=== PATIENT | female | born 1975 | race Caucasian/White ===

== ENCOUNTER 2019-01-29 23:08 | Observation (INO) | payer OTHER ==
[~2019-01-29] VITALS: Ht 162.6 cm; Wt 92.1 kg
[2019-01-29] MEDS ORDERED: SODIUM CHLORIDE 0.9% 1000ML 1,000 ML IV STA (23:28)
[2019-01-29] MEDS ORDERED: PANTOPRAZOLE 40 MG 10ML VIAL IV STA (23:28)
[2019-01-29] MEDS ORDERED: ASPIRIN 81 MG CHEW TAB PO ONE (23:30)
[2019-01-30 00:07] LABS: BASOPHILS # (AUTO) 0.1 (0.0-0.1); BASOPHILS % 0.5 % (0.0-1.0); EOSINOPHILS # (AUTO) 0.1 (0.0-0.4); EOSINOPHILS % 0.6 % (0.0-6.0); HEMATOCRIT 43.2 % (34.2-44.1); HEMOGLOBIN 14.3 g/dL (12.0-16.0); LYMPHOCYTES # (AUTO) 4.3 (1.0-3.2); LYMPHOCYTES % 26.6 % (18.0-39.1); MEAN CORPUSCULAR HEMOGLOBIN 29.3 pg (28-32); MEAN CORPUSCULAR HGB CONC 33.1 g/dL (31-35); MEAN CORPUSCULAR VOLUME 88.5 fL (81-99); MONOCYTES # (AUTO) 0.7 (0.2-0.8); MONOCYTES % 4.4 % (4.4-11.3); NEUTROPHILS # (AUTO) 10.8 (2.1-6.9); NEUTROPHILS % 67.5 % (38.7-80.0); PLATELET COUNT 312 x10e3/uL (140-360); RED BLOOD COUNT 4.88 x10e6/uL (3.6-5.1); RED CELL DISTRIBUTION WIDTH 12.9 % (11.7-14.4)
[2019-01-30 00:14] LABS: INR 0.92; PROTHROMBIN TIME 12.8 seconds (11.9-14.5)
--- NOTE | 2019-01-30 00:19 | Diagnostic Imaging Report ---
EXAMINATION: CHEST SINGLE (PORTABLE) INDICATION: Chest pain. COMPARISON: None FINDINGS: TUBES and LINES: None. LUNGS: Lungs are not well inflated. There is no evidence of pneumonia or pulmonary edema. PLEURA: No pleural effusion or pneumothorax. HEART AND MEDIASTINUM: The cardiomediastinal silhouette is unremarkable. BONES AND SOFT TISSUES: No acute osseous abnormality. UPPER ABDOMEN: No free air under the diaphragm. IMPRESSION: No acute radiographic abnormality. Signed by: Dr. Randy Méndez MD on 01/30/2019 12:15 AM
[2019-01-30 00:33] LABS: ALANINE AMINOTRANSFERASE 39 IU/L (0-55); ALBUMIN 3.9 g/dL (3.5-5.0); ALBUMIN/GLOBULIN RATIO 0.9 (0.8-2.0); ALKALINE PHOSPHATASE 94 IU/L (40-150); ANION GAP 14.9 mmol/L (8-16); BLOOD UREA NITROGEN 14 mg/dL (7-26); BUN/CREATININE RATIO 18 (6-25); CALCIUM 9.6 mg/dL (8.4-10.2); CARBON DIOXIDE 28 mmol/L (22-29); CHLORIDE 98 mmol/L (98-107); CREATINE KINASE 42 IU/L (29-168); EST GLOMERULAR FILTRATION RATE > 60 ML/MIN (60-); GLUCOSE 149 mg/dL (74-118); MAGNESIUM 1.9 MG/DL (1.3-2.1); SODIUM 138 mmol/L (136-145)
[2019-01-30 00:51] LABS: POTASSIUM 2.9 mmol/L (3.5-5.1)
[2019-01-30] MEDS ORDERED: POTASSIUM CHLORIDE 20 MEQ TAB CR PO STA (00:58)
[2019-01-30] MEDS ORDERED: MORPHINE SULFATE 2 MG/ML SYR 1ML IV PRN (01:15)
[2019-01-30] MEDS ORDERED: ONDANSETRON HCL INJ 2MG/ML 2ML 2 MG/ML VIAL IV PRN (01:15)
[2019-01-30] MEDS ORDERED: NITROGLYCERIN 0.4 MG SUBL SL PRN (01:15)
[2019-01-30] MEDS ORDERED: KCL 20MEQ/.9 SOD CHL 1,000 ML IV ONE (01:15)
--- OUTSIDE RECORDS SUMMARY | 2019-01-30 01:22 | XMS REPORT ---
Author Author [facility] Address Unknown Phone Unavailable Care Team Providers Care Communication Coordinator Name Role Phone Miriam FONG Unavailable Unavailable Problems This patient has no known problems. Allergies, Adverse Reactions, Alerts This patient has no known allergies or adverse reactions. Medications This patient has no known medications. Results Test Description Test Time Test Comments Text Results Atomic Results Result Comments CHEST SINGLE (PORTABLE) 2019-01-30 00:14:00 [place] [address] Patient Name: REBA GRAVES MR #: [id number] : 1975 Age/Sex: 43/F Req #: [id number] Adm Physician: Ordered by: DANG FONG MD Report #: [id number] Location: ER Room/Bed: Procedure: [id number] DX/CHEST SINGLE (PORTABLE) Exam Date: 01/29/19 Exam Time: 2344 REPORT STATUS: Signed EXAMINATION: CHEST SINGLE (PORTABLE) INDIC ATION: Chest pain. COMPARISON: None FINDINGS: TUBES and LINES: None. LUNGS: Lungs are not well inflated. There is no evidence of pneumonia or pulmonary edema. PLEURA: No pleural effusion or pneumothorax. HEART AND MEDIASTINUM: The cardiomediastinal silhouette is unremarkable. BONES AND SOFT TISSUES: No acute osseous abnormality. UPPER ABDOMEN: No free air under the diaphragm. IMPRESSION: No acute radiographic abnormality. Signed by: Dr. Miriam Dimas MD on 01/30/2019 12:15 AM Dictated By: MIRIAM DIMAS MD Transcribed By: DAVINA on 01/30/1914 COPY TO: DANG FONG MD
[2019-01-30 01:25] LABS: CREATINE KINASE MB < 1.00 ng/mL (0-4.3)
[2019-01-30 02:06] LABS: BILIRUBIN,URINE NEGATIVE (NEGATIVE); CLARITY,URINE CLEAR (CLEAR); COLOR,URINE YELLOW (YELLOW); KETONES,URINE NEGATIVE (NEGATIVE); LEUKOCYTE ESTERASE ,URINE NEGATIVE (NEGATIVE); NITRITE,URINE NEGATIVE (NEGATIVE); PROTEIN,URINE DIPSTICK NEGATIVE (NEGATIVE); URINE UROBILINOGEN 0.2 mg/dL (0.2 - 1)
[2019-01-30] MEDS: METOPROLOL TARTRATE 25 MG TAB PO SCH ×2 (02:12→08:56)
[2019-01-30] MEDS: FAMOTIDINE 20 MG/2 ML VIAL IV SCH ×2 (02:18→08:56)
[2019-01-30 02:23] LABS: BACTERIA,URINE MANY /HPF; EPITHELIAL CELLS,URINE MANY /LPF
[2019-01-30] MEDS ORDERED: CEFTRIAXONE SOD 1 GM/NS 50 ML 50 ML IV ONE (02:30)
[2019-01-30] MEDS ORDERED: PRAVASTATIN SOD40 MG PO (03:09)
[2019-01-30] MEDS ORDERED: HYDROCHLOROTHIA25 MG PO (03:09)
[2019-01-30] MEDS ORDERED: AUGMENTIN 500-1 EACH PO (03:09)
[2019-01-30 03:14] VITALS: BP 114/78
[2019-01-30 05:20] VITALS: BP 93/59
[2019-01-30 07:59] VITALS: BP 111/71
[2019-01-30 07:59] LABS: BASOPHILS # (AUTO) 0.1 (0.0-0.1); BASOPHILS % 0.5 % (0.0-1.0); EOSINOPHILS # (AUTO) 0.1 (0.0-0.4); EOSINOPHILS % 0.7 % (0.0-6.0); HEMATOCRIT 37.4 % (34.2-44.1); HEMOGLOBIN 12.3 g/dL (12.0-16.0); LYMPHOCYTES # (AUTO) 3.4 (1.0-3.2); LYMPHOCYTES % 27.9 % (18.0-39.1); MEAN CORPUSCULAR HEMOGLOBIN 29.9 pg (28-32); MEAN CORPUSCULAR HGB CONC 32.9 g/dL (31-35); MONOCYTES # (AUTO) 0.6 (0.2-0.8); MONOCYTES % 4.6 % (4.4-11.3); NEUTROPHILS % 65.9 % (38.7-80.0); PLATELET COUNT 255 x10e3/uL (140-360); RED BLOOD COUNT 4.11 x10e6/uL (3.6-5.1)
--- NOTE | 2019-01-30 08:00 | NUR ---
Received patient this morning, a/ox3, in bed, denies any rest chest pains, stated pain aggravated when she moves and radiates to left shoulder, chest pain occured x2 last night at rest, cardiac enzymes negative, no N/V will monitor, regular S1, S2, no Murmurs noted no precordium, will monitor.
[2019-01-30 08:26] LABS: ALANINE AMINOTRANSFERASE 32 IU/L (0-55); ALBUMIN 3.1 g/dL (3.5-5.0); ALBUMIN/GLOBULIN RATIO 0.9 (0.8-2.0); ALKALINE PHOSPHATASE 71 IU/L (40-150); BLOOD UREA NITROGEN 11 mg/dL (7-26); BUN/CREATININE RATIO 17 (6-25); CALCIUM 8.2 mg/dL (8.4-10.2); CARBON DIOXIDE 27 mmol/L (22-29); CHLORIDE 105 mmol/L (98-107); CREATINE KINASE 34 IU/L (29-168); CREATININE, SERUM 0.65 mg/dL (0.57-1.11); EST GLOMERULAR FILTRATION RATE > 60 ML/MIN (60-); GLUCOSE 105 mg/dL (74-118); SODIUM 139 mmol/L (136-145)
[2019-01-30] MEDS ORDERED: ASPIRIN 81 MG ENTERIC COATED PO SCH (09:00)
--- NOTE | 2019-01-30 09:06 | NUR ---
Rounds by attending and orders in place to address UTI and Echo to be completed.
[2019-01-30] MEDS ORDERED: ACETAMINOPHEN 325 MG TAB PO PRN (09:15)
[2019-01-30] MEDS ORDERED: HYDRALAZINE HCL 20 MG/ML VIAL IV PRN (09:15)
[2019-01-30] MEDS ORDERED: ASPIRIN EC81 MG PO (09:22)
[2019-01-30] MEDS ORDERED: FAMOTIDINE20 MG PO (09:22)
[2019-01-30] MEDS ORDERED: LOPRESSOR25 MG PO (09:22)
[2019-01-30 09:38] LABS: CHOL/HDL RATIO 5.1 (3.0-3.6)
[2019-01-30 09:56] VITALS: BP 111/71
--- NOTE | 2019-01-30 10:12 | NUR ---
STAFF DOING ECHO , WILL RETURN TIME PERMITS
[2019-01-30 12:06] VITALS: BP 123/69
--- NOTE | 2019-01-30 14:06 | NUR ---
Pharmacy information for prescriptions [facility] pharmacy [facility]
[2019-01-30 14:52] LABS: CREATINE KINASE 40 IU/L (29-168)
--- NOTE | 2019-01-30 16:29 | NUR ---
Pharmacy information for prescriptions [facility] TEL: [phone]
--- NOTE | 2019-01-30 16:39 | NUR ---
Reported results of Troponin and Echo to Barbara, REVIEW ENGINEER and orders to discharge patient. Urine micro pending and REVIEW ENGINEER to review results and send prescription to pharmacy for any growths if current regiment of Augmentin for sinusitis is not sensitive to any potential growth. Provided with discharge summary, prescription, patient instructed to f/u with PCP, IV line removed with cath tip in place, dressing applied, questions answered.
[2019-01-31] MEDS ORDERED: PRAVASTATIN 20 MG TAB PO SCH (07:30)
[2019-01-31] MEDS ORDERED: HYDROCHLOROTHIAZIDE 25 MG TAB PO SCH (09:00)
[2019-01-31] MEDS ORDERED: CEFTRIAXONE SOD 1 GM/NS 50 ML 50 ML IV SCH (09:15)
--- NOTE | 2019-01-31 11:56 | Discharge Summary ---
ADMISSION DIAGNOSES: 1. Chest pain. 2. Hypertension. 3. Hyperlipidemia. 4. Obesity of a BMI of 34.8. 5. Urinary tract infection with sepsis, present on admission. DISCHARGE DIAGNOSES: 1. Chest pain. 2. Hypertension. 3. Hyperlipidemia. 4. Obesity of a BMI of 34.8. 5. Urinary tract infection with sepsis, present on admission. 6. Rule out acute coronary syndrome. HISTORY: Hypertension and hyperlipidemia. SURGICAL HISTORY: x2 and endometrial ablation. FAMILY HISTORY: Noncontributory. SOCIAL HISTORY: Noncontributory. HOSPITAL COURSE: A 43-year-old female admits with left upper chest pain that began while cooking dinner. Pain is described as a pressure and she had associated acid reflux. The pain radiated to her left neck and back. She denies associated nausea, vomiting, diaphoresis, or dizziness. She was diagnosed with a sinus infection prior to admission and was given antibiotics. On admission, chest x-ray was negative. Troponins were negative x3. UA showed positive WBC. The patient is denying dysuria. Lipid panel was within normal limits. EKG shows sinus tachycardia. The patient refused a cardiac workup and said that she will follow up outpatient if need be with a learning support teacher. She will follow up with primary care in 1 to 2 weeks and Cardiology as discussed. The patient and understand discharge instructions and agrees to plan. Vital signs stable. The patient is afebrile. Dictated by Barbara Hair NP MD NOHEMY Kemp/DAE /[id number]
== END 2019-01-30 16:34 | disposition home or self-care (01) ==
LOC: ER 23:08 → ERHOLD 01-30 01:20 → MED/SURG 01-30 02:25
PROVIDERS: ADMIT Internal Medicine; ATTEND Internal Medicine
DX: R07.9 Chest pain, unspecified (principal); A41.9 Sepsis, unspecified organism; I10 Essential (primary) hypertension; E78.5 Hyperlipidemia, unspecified; E66.9 Obesity, unspecified; Z68.34 Body mass index [BMI] 34.0-34.9, adult; N39.0 Urinary tract infection, site not specified
CPT/HCPCS: 36415; 71045; 80053 ×2; 80061; 81001; 82550 ×2; 82553 ×2; 83036; 83735; 83880; 84484 ×2; 84702; 85025 ×2; 85379; 85610; 85730; 87040; 87086; 93005; 93306; 99284; C9113; G0378; J0696; J2270; J7030